=== PATIENT | female | born 1960 | race Caucasian/White ===

== ENCOUNTER 2020-05-24 10:26 | Emergency (ER) | payer OTHER ==
[~2020-05-24] VITALS: Ht 152.4 cm; Wt 59.1 kg
[~2020-05-24 10:26] MED LIST: NOCURR
[2020-05-24] MEDS ORDERED: ACETAMINOPHEN 325 MG TABLET PO ONE (11:00)
[2020-05-24 11:07] LABS: COVID AG,FIA SOURCE NASOPHARYNGEAL
[2020-05-24 11:36] VITALS: BP 151/91
== END 2020-05-24 12:08 | disposition home or self-care (01) ==
LOC: EMS 10:26
DX: J40 Bronchitis, not specified as acute or chronic (principal); F17.210 Nicotine dependence, cigarettes, uncomplicated; Z20.828 Contact with and (suspected) exposure to other viral communicable diseases
CPT/HCPCS: 87426; 71045-TC

== ENCOUNTER 2020-10-29 15:55 | Emergency (ER) | payer OTHER ==
[~2020-10-29] VITALS: Ht 152.4 cm; Wt 58.2 kg
[2020-10-29] MEDS ORDERED: ACET-2247 PO (16:06)
[2020-10-29] MEDS ORDERED: KETOROLAC TROMETHAMINE 60 MG/2 ML VIAL IM ONE (16:45)
[2020-10-29] MEDS ORDERED: LIDOCAINE 5% TRANSDERMAL PATCH TD ONE (16:45)
[2020-10-29 17:30] VITALS: BP 162/123
== END 2020-10-29 17:52 | disposition home or self-care (01) ==
LOC: EMS 15:58
DX: S46.811A Strain of other muscles, fascia and tendons at shoulder and upper arm level, right arm, initial encounter (principal); X58.XXXA Exposure to other specified factors, initial encounter; Y93.89 Activity, other specified; Y92.89 Other specified places as the place of occurrence of the external cause; Y99.8 Other external cause status
CPT/HCPCS: 96372; 99283; J1885

== ENCOUNTER 2021-03-23 20:45 | Emergency (ER) | payer OTHER ==
[~2021-03-23] VITALS: Ht 154.9 cm; Wt 53.2 kg
[~2021-03-23 20:45] MED LIST changes: +ACET-2247 PO; -NOCURR
[2021-03-23] MEDS ORDERED: PANT-31 PO (21:05)
[2021-03-23] MEDS ORDERED: AMLO-257 PO (21:05)
[2021-03-23] MEDS ORDERED: ASPI-1450 PO (21:05)
[2021-03-23 22:12] LABS: BASOPHILS % (AUTO) 1.7 % (0.0-2.0); HEMATOCRIT 42.2 % (36-46); HEMOGLOBIN 14.1 g/dL (12.0-16.0); LYMPHOCYTES # (AUTO) 2.3 K/uL (1.0-4.8); MEAN CORPUSCULAR HEMOGLOBIN 30.2 pg (26.0-34.0); MEAN CORPUSCULAR HGB CONC 33.3 G/dL (31.0-37.0); MEAN CORPUSCULAR VOLUME 91 fL (80-100); MONOCYTES # (AUTO) 0.5 K/uL (0.1-1.0); MONOCYTES % (AUTO) 10.9 % (2.0-9.0); NEUTROPHILS # (AUTO) 1.8 K/uL (1.8-7.7); NEUTROPHILS % (AUTO) 37.4 % (40.0-70.0); PLATELET COUNT (AUTO) 303 K/uL (150-450); RED BLOOD CELL COUNT(AUTO) 4.66 MIL/uL (4.00-5.20); RED CELL DISTRIBUTION WIDTH 15.6 % (11.5-14.5)
[2021-03-23 22:13] LABS: CALCIUM, TOTAL 8.9 mg/dL (8.8-10.5); CREATININE 1.02 mg/dL (0.60-1.30); POTASSIUM 3.8 mmol/L (3.5-5.1)
[2021-03-23 22:25] LABS: ALBUMIN 3.2 g/dL (3.4-5.0); BILIRUBIN,TOTAL 0.4 mg/dL (0.1-1.0); TOTAL PROTEIN, SERUM 7.9 g/dL (6.4-8.2)
[2021-03-23 22:48] LABS: APPEARANCE,URINE CLOUDY (CLEAR); BILIRUBIN,URINE NEGATIVE (NEGATIVE); GLUCOSE, URINE (UA) NEGATIVE (NEGATIVE); KETONES,URINE NEGATIVE (NEGATIVE); LEUKOCYTE ESTERASE ,URINE SMALL (NEGATIVE); NITRATE,URINE POSITIVE (NEGATIVE); OCCULT BLOOD,URINE MODERATE (NEGATIVE); PH,URINE 7.5 (5.0-8.0); PROTEIN,URINE NEGATIVE (NEGATIVE)
[2021-03-23 23:09] LABS: BACTERIA,URINE Moderate /HPF (None Seen)
[2021-03-23 23:10] LABS: SQUAMOUS EPITHELIAL CELL,UR Few /LPF (None Seen)
[2021-03-23] MEDS ORDERED: MORPHINE SULFATE 4 MG/ML SYRINGE IVP ONE (23:15)
[2021-03-23] MEDS ORDERED: ONDANSETRON HCL 4 MG/2 ML VIAL IVP ONE (23:15)
[2021-03-23] MEDS ORDERED: SODIUM CHLORIDE 0.9% 1,000 ML IV ONE (23:15)
[2021-03-23] MEDS ORDERED: IOHEXOL 350 MG/ML 100 ML VIAL ONE (23:46)
[2021-03-23] MEDS ORDERED: SODIUM CHLORIDE 0.9% 100 ML ONE (23:46)
[2021-03-24] MEDS ORDERED: KETOROLAC TROMETHAMINE 30 MG/ML VIAL IVP ONE (00:45)
[2021-03-24 02:30] VITALS: BP 128/95
== END 2021-03-24 03:27 | disposition home or self-care (01) ==
LOC: EMS 20:50
DX: N39.0 Urinary tract infection, site not specified (principal); K52.9 Noninfective gastroenteritis and colitis, unspecified; I10 Essential (primary) hypertension; F17.210 Nicotine dependence, cigarettes, uncomplicated; Z79.82 Long term (current) use of aspirin
CPT/HCPCS: 36415; 74177; 80053; 81001; 83690; 85025; 87077; 87086; 87186; 96361; 96374; 96375; 99285; J1885; J2270; J2405; J7030; Q9967; J7050

== ENCOUNTER 2021-06-10 13:52 | Emergency (ER) | payer OTHER ==
[~2021-06-10] VITALS: Ht 152.4 cm; Wt 53.2 kg
[~2021-06-10 13:52] MED LIST changes: +AMLO-257 PO; +ASPI-1450 PO; +PANT-31 PO
[2021-06-10 14:16] VITALS: BP 135/75
[2021-06-10 14:33] LABS: COVID AG,FIA SOURCE NASOPHARYNGEAL
[2021-06-10 14:58] LABS: INFLUENZA TYPE A NEGATIVE FOR TYPE A (NEGATIVE); INFLUENZA TYPE B NEGATIVE FOR TYPE B (NEGATIVE)
== END 2021-06-10 15:12 | disposition home or self-care (01) ==
LOC: EMS 13:53
DX: J02.9 Acute pharyngitis, unspecified (principal); I10 Essential (primary) hypertension; F17.210 Nicotine dependence, cigarettes, uncomplicated; Z20.822 Contact with and (suspected) exposure to COVID-19; Z79.899 Other long term (current) drug therapy
CPT/HCPCS: 87804; 99283

== ENCOUNTER 2023-08-25 12:58 | Emergency (ER) | payer OTHER ==
[~2023-08-25] VITALS: Ht 152.4 cm; Wt 47.7 kg
[2023-08-25 13:01] VITALS: TEMP 97.8
[2023-08-25] MEDS ORDERED: DOCU100C33 PO (13:06)
[2023-08-25] MEDS ORDERED: PANT40TA54 PO ×2 (13:06→16:21)
[2023-08-25 13:11] LABS: APPEARANCE,URINE CLEAR (CLEAR); BILIRUBIN,URINE NEGATIVE (NEGATIVE); COLOR,URINE YELLOW (YELLOW); GLUCOSE, URINE (UA) NEGATIVE (NEGATIVE); KETONES,URINE NEGATIVE (NEGATIVE); LEUKOCYTE ESTERASE ,URINE SMALL (NEGATIVE); NITRATE,URINE NEGATIVE (NEGATIVE); OCCULT BLOOD,URINE SMALL (NEGATIVE); PROTEIN,URINE TRACE mg/dL (NEGATIVE); SPECIFIC GRAVITIY, URINE 1.026 (1.003-1.030)
[2023-08-25 13:18] LABS: BACTERIA,URINE Moderate /HPF (None Seen); SQUAMOUS EPITHELIAL CELL,UR Few /LPF (None Seen)
[2023-08-25 13:34] LABS: BASOPHILS % (AUTO) 1.5 % (0.0-2.0); EOSINOPHILS % (AUTO) 1.3 % (1.0-6.0); HEMATOCRIT 43.1 % (36-46); HEMOGLOBIN 14.4 g/dL (12.0-16.0); LYMPHOCYTES # (AUTO) 2.2 K/uL (1.0-4.8); LYMPHOCYTES % (AUTO) 32.6 % (22.0-44.0); MEAN CORPUSCULAR HEMOGLOBIN 31.7 pg (26.0-34.0); MEAN CORPUSCULAR HGB CONC 33.4 G/dL (31.0-37.0); MEAN CORPUSCULAR VOLUME 95 fL (80-100); MONOCYTES # (AUTO) 0.5 K/uL (0.1-1.0); MONOCYTES % (AUTO) 7.2 % (2.0-9.0); NEUTROPHILS # (AUTO) 3.9 K/uL (1.8-7.7); NEUTROPHILS % (AUTO) 57.4 % (40.0-70.0); PLATELET COUNT (AUTO) 303 K/uL (150-450); RED BLOOD CELL COUNT(AUTO) 4.55 MIL/uL (4.00-5.20); RED CELL DISTRIBUTION WIDTH 13.1 % (11.5-14.5); WHITE BLOOD COUNT (AUTO) 6.8 K/uL (4.5-11.0)
[2023-08-25 13:45] LABS: ANION GAP 11 mmol/L (8-16); CALCIUM, TOTAL 9.3 mg/dL (8.8-10.5); CARBON DIOXIDE 25 mmol/L (22-29); CHLORIDE 105 mmol/L (98-107); CREATININE 0.86 mg/dL (0.60-1.30); GLOMERULAR FILTR. RATE CALC > 60 mL/min (>60); GLUCOSE,RANDOM 133 mg/dL (70-110); POTASSIUM 3.7 mmol/L (3.5-5.1); SODIUM SERUM 141 mmol/L (136-145); UREA NITROGEN, BLOOD 16 mg/dL (7-18)
[2023-08-25 13:51] LABS: ALANINE AMINOTRANSFERASE 53 U/L (12-78); ALBUMIN 3.4 g/dL (3.4-5.0); ALKALINE PHOSPHATASE 307 U/L (46-116); ASPARTATE AMINOTRANSFERASE 56 U/L (15-37); BILIRUBIN,TOTAL 0.7 mg/dL (0.1-1.0); LIPASE 71 U/L (16-77); TOTAL PROTEIN, SERUM 7.8 g/dL (6.4-8.2)
[2023-08-25 13:53] LABS: TROPONIN I-HIGH SENSITIVITY 8 ng/L (<51)
[2023-08-25] MEDS: ONDANSETRON HCL 4 MG TABLET PO ONE (15:09)
[2023-08-25] MEDS: MAG HYDROX/ALUMINUM HYD/SIMETH ES 30 ML SUSPENSION UDCUP PO ONE (15:09)
[2023-08-25] MEDS: ACETAMINOPHEN 500 MG TABLET PO ONE (15:09)
[2023-08-25 16:08] VITALS: BP 138/79; PULSE 71; RESP 16
[2023-08-25] MEDS ORDERED: ACET-66 PO (16:21)
[2023-08-25] MEDS ORDERED: MAG30ORA11 PO (16:21)
== END 2023-08-25 17:16 | disposition home or self-care (01) ==
LOC: EMS 13:14
DX: N20.0 Calculus of kidney (principal); R10.32 Left lower quadrant pain; I10 Essential (primary) hypertension; F17.210 Nicotine dependence, cigarettes, uncomplicated
CPT/HCPCS: 99284; 74176; 80053; 81001; 83690; 84484; 85025; 36415; 87086; 87186; Q0162

== ENCOUNTER 2024-03-16 14:35 | Emergency (ER) | payer OTHER ==
[~2024-03-16] VITALS: Ht 152.4 cm; Wt 47.7 kg
[~2024-03-16 14:35] MED LIST changes: -ACET-2247 PO; +ACET-66 PO; +DOCU100C33 PO; +MAG30ORA11 PO; +PANT40TA54 PO
[2024-03-16 14:41] VITALS: BP 115/69; PULSE 78; RESP 18; TEMP 98.9; O2SAT 97
[2024-03-16 14:44] LABS: COVID AG,FIA SOURCE NASAL SWAB
[2024-03-16 15:04] LABS: SARS-COV2 (COVID) ANTIGEN,FIA Negative (Negative)
[2024-03-16 15:37] LABS: INFLUENZA TYPE A NEGATIVE FOR TYPE A (NEGATIVE); INFLUENZA TYPE B POSITIVE FOR TYPE B (NEGATIVE)
[2024-03-16] MEDS ORDERED: BENZ-227 PO (16:03)
== END 2024-03-16 16:42 | disposition home or self-care (01) ==
LOC: EMS 14:35
DX: J10.1 Influenza due to other identified influenza virus with other respiratory manifestations (principal); R05.9 Cough, unspecified; M79.10 Myalgia, unspecified site; F17.210 Nicotine dependence, cigarettes, uncomplicated; Z20.822 Contact with and (suspected) exposure to COVID-19
CPT/HCPCS: 87804; 99283

== ENCOUNTER 2024-08-30 11:06 | Emergency (ER) | payer OTHER ==
[~2024-08-30] VITALS: Ht 152.4 cm; Wt 47.3 kg
[~2024-08-30 11:06] MED LIST changes: +BENZ-227 PO
[2024-08-30 11:23] VITALS: TEMP 98.4
[2024-08-30] MEDS: KETOROLAC TROMETHAMINE 60 MG/2 ML VIAL IM ONE (13:30)
[2024-08-30] MEDS: METHOCARBAMOL 500 MG TABLET PO ONE (13:30)
[2024-08-30] MEDS ORDERED: TRAM50TA5 PO (14:28)
[2024-08-30] MEDS ORDERED: METH-812 PO (14:28)
[2024-08-30 14:38] VITALS: BP 156/79; PULSE 70; RESP 16; O2SAT 98
== END 2024-08-30 14:43 | disposition home or self-care (01) ==
LOC: EMS 11:06
DX: M48.54XA Collapsed vertebra, not elsewhere classified, thoracic region, initial encounter for fracture (principal); M54.50 Low back pain, unspecified; G89.29 Other chronic pain; F17.210 Nicotine dependence, cigarettes, uncomplicated; I10 Essential (primary) hypertension; Z79.82 Long term (current) use of aspirin; Z79.899 Other long term (current) drug therapy
CPT/HCPCS: 99283; 96372; J1885